=== PATIENT | female | born 1970 | race Caucasian/White ===

== ENCOUNTER 2022-01-17 19:04 | Emergency (ER) | payer OTHER ==
[~2022-01-17] VITALS: Ht 175.3 cm; Wt 63.5 kg
[2022-01-17 19:06] VITALS: BP 124/82
[2022-01-17] MEDS ORDERED: LIDOCAINE HCL 2% VISCOUS 15 ML UDCUP PO ONE (20:30)
[2022-01-17] MEDS ORDERED: IBUPROFEN 600 MG TABLET PO ONE (20:30)
[2022-01-17] MEDS ORDERED: MAG/ALUM/SIMETH 30 ML UDCUP PO ONE (20:30)
== END 2022-01-17 23:17 | disposition home or self-care (01) ==
LOC: EDH 19:04
DX: J02.9 Acute pharyngitis, unspecified (principal); Z20.822 Contact with and (suspected) exposure to COVID-19; Z88.1 Allergy status to other antibiotic agents
CPT/HCPCS: 70360; 87635; 87804 ×2; 87880; 99284; C9803